=== PATIENT | female | born 1945 | race Hispanic/Latino ===

== ENCOUNTER → 2020-10-14 | Outpatient (CLI) | payer OTHER, MEDICARE ==
[~2020-10-14] MED LIST: ACET-3194 PO; DULO30CA2 PO; FOLI1TAB15 PO; LEVO112T4 PO; METH2.5T6 PO; OMEP20CA12 PO; PRAV20TA4 PO; PRED2.5T PO; PRED5TAB44 PO; TRAM50TA4 PO
== END | disposition home or self-care (01) ==
LOC: OIH 10:50
PROVIDERS: ATTEND Neuromusculoskeletal Medicine & OMM
DX: M16.11 Unilateral primary osteoarthritis, right hip (principal); M43.12 Spondylolisthesis, cervical region
CPT/HCPCS: 72050; 73521

== ENCOUNTER → 2022-07-23 | Outpatient (CLI) | payer OTHER, MEDICARE ==
[~2022-07-23] MED LIST changes: +LIDOCAINE HCL 1% 20 ML VIAL ONE
[2022-07-23 09:08] LABS: INR 0.93 (0.85-1.15); PROTHROMBIN TIME 10.1 SEC (9.6-11.6)
[2022-07-23 09:10] LABS: PARTIAL THROMBOPLASTIN TIME 26.8 SEC (26.3-35.5)
== END | disposition home or self-care (01) ==
LOC: RAH 08:05
PROVIDERS: ATTEND Student in an Organized Health Care Education/Training Program
DX: D44.2 Neoplasm of uncertain behavior of parathyroid gland (principal); K11.8 Other diseases of salivary glands; Z79.01 Long term (current) use of anticoagulants
CPT/HCPCS: 36415; 38505; 76942; 85610; 85730; 88307

== ENCOUNTER 2022-08-21 06:14 | Day surgery (SDC) | payer OTHER, MEDICARE ==
[2022-08-20 13:40] LABS: BASOPHILS % (AUTO) 0.3 % (0.0-5.0); HEMATOCRIT 40.4 % (36-48); LYMPHOCYTES % (AUTO) 17.3 % (21.0-51.0); MEAN CORPUSCULAR HEMOGLOBIN 31.8 pg (27.0-33.0); MEAN CORPUSCULAR HGB CONC 32.2 g/dL (32.0-36.0); MEAN CORPUSCULAR VOLUME 98.8 fL (79-99); MONOCYTES % (AUTO) 7.5 % (3.0-13.0); NEUTROPHILS % (AUTO) 73.2 % (40.0-77.0); PLATELET COUNT (AUTO) 343 K/uL (130-400); RED BLOOD CELL COUNT(AUTO) 4.09 MIL/uL (4.00-5.50); RED CELL DISTRIBUTION WIDTH 14.5 % (11.0-15.5); WHITE BLOOD COUNT (AUTO) 11.9 K/uL (4.8-10.8)
[2022-08-20 13:53] LABS: ALBUMIN 3.8 g/dL (3.5-5.0); CREATININE 0.6 mg/dL (0.5-1.5); POTASSIUM 3.8 mmol/L (3.5-5.1); TOTAL PROTEIN, SERUM 7.7 g/dL (6.0-8.3)
[~2022-08-21] VITALS: Ht 165.1 cm; Wt 64.6 kg
[~2022-08-21 06:14] MED LIST changes: -ACET-3194 PO; +ASCO500T20 PO; +CALC1TAB2 PO; +DICL100G32 TP; +DICL20GE TP; -DULO30CA2 PO; +ERGOCALCIFEROL PO; -FOLI1TAB15 PO; +FOLIC ACID 1MG PO; +L.AC1CAP6 PO; +LEVO100C4 PO; -LEVO112T4 PO; -LIDOCAINE HCL 1% 20 ML VIAL ONE; +LOSA25TA41 PO; -PRAV20TA4 PO; -PRED2.5T PO; +PRED5TAB PO; -PRED5TAB44 PO; +ROSU10TA28 PO; -TRAM50TA4 PO; +TUMERIC 500 MG PO; +UPAD15TA PO; +[UNRECOGNIZED DRUG - OTHER] PO
[2022-08-21 06:40] VITALS: BP 157/73
[2022-08-21 07:36] LABS: INR 0.95 (0.85-1.15); PROTHROMBIN TIME 10.4 SEC (9.6-11.6)
[2022-08-21 07:37] LABS: PARTIAL THROMBOPLASTIN TIME 25.6 SEC (26.3-35.5)
[2022-08-21] MEDS ORDERED: 0.9%NACL 1000ML 1,000 ML IV ONE (07:50)
[2022-08-21] MEDS ORDERED: PROPOFOL 10 MG/ML 20ML VIAL IV ONE (08:16)
== END 2022-08-21 09:30 | disposition home or self-care (01) ==
LOC: ENDO 06:14 → DAH 06:14 → ENDO 09:30
PROVIDERS: ATTEND Student in an Organized Health Care Education/Training Program
DX: Z13.810 Encounter for screening for upper gastrointestinal disorder (principal); K31.7 Polyp of stomach and duodenum; K29.70 Gastritis, unspecified, without bleeding; K21.9 Gastro-esophageal reflux disease without esophagitis; K44.9 Diaphragmatic hernia without obstruction or gangrene; D44.2 Neoplasm of uncertain behavior of parathyroid gland; E78.5 Hyperlipidemia, unspecified; M06.9 Rheumatoid arthritis, unspecified; G51.0 Bell's palsy; Z79.01 Long term (current) use of anticoagulants; Z79.899 Other long term (current) drug therapy; Z90.89 Acquired absence of other organs; Z96.649 Presence of unspecified artificial hip joint; Z20.822 Contact with and (suspected) exposure to COVID-19
CPT/HCPCS: 80053; 85025; 87426; 36415 ×2; 43251; 85610; 85730; 43239; J7030 ×2; J2704; A4620; A4215 ×2; A4223; A7002; A4222; A4221; A4663; A4606